=== PATIENT | male | born 1995 | race Caucasian/White ===

== ENCOUNTER 2018-07-07 11:48 | Emergency (ER) | payer OTHER ==
[~2018-07-07] VITALS: Ht 170.2 cm; Wt 100.0 kg
[2018-07-07] MEDS ORDERED: SOD CHLORIDE 0.9% 1,000 ML IV STA (12:16)
[2018-07-07] MEDS ORDERED: LORAZEPAM 0.5 MG TAB PO ONE (12:30)
[2018-07-07 12:37] VITALS: BP 122/77; PULSE 89; RESP 20; Ht 170.2 cm; Wt 100.0 kg
--- NOTE | 2018-07-07 14:08 | PSY ---
Date/Time of Note Date/Time of Note DATE: 07/07/18 TIME: 13:49 Psychiatric Subjective Eval Subjective Evaluation Patient location: emergency Chief Complaint: Pt. VALENTINA RA with c/o anxiety attacks, denies SI/HI Reason for consult: Risk assessment and treatment recommendations. Past psychiatric history He reports that he has been treated for psychiatric reasons most of his adult life. Hospitalization: Suicidal Attempt(s) Family History His brother has anxiety. Medical history He is in good health. Substance Abuse Substance use: No known substance abuse Substance abuse history: No Prior substance abuse treatmen: No Social History Marital status: single Level of education: High school graduate DPA/Conservatorship: No Occupation/Intermediate: Disabled Psychiatric Objective Eval Review of Systems: Review of Systems: Not Applicable Constitutional: Normal Eyes: Normal ENT: Normal Neck: Normal Respiratory: Normal Chest/Breast: Normal Cardiovascular: Normal GI: Normal Genitourinary: Normal Skin: Normal Lymphatic: Normal Musculoskeletal: Normal Neurological: Normal Physical Examination: Physical Examination: Not Applicable Sleep: Insomnia Appetite: Adequate Energy: Adequate Interest: Adequate Mental Status Examination: Appearance: Groomed Eye Contact: Good Psychomotor Activity: Normal Behavior: Cooperative Speech: Clear AFFECT: Appropriate, Anxious Mood: Appropriate/Full Though Process: Linear Thought Content: Normal Suicidal: No Homicidal: No On 72 hour hold: No Orientation: x4 Cognition: Alert Insight: Mild Judgement: Mild Attention Span: Intact Laboratory Results Laboratory Tests Test 07/07/18 12:38 White Blood Count 9.3 10^3/ul Red Blood Count 5.04 10^6/ul Hemoglobin 14.7 g/dl Hematocrit 43.3 % Mean Corpuscular Volume 85.9 fl Mean Corpuscular Hemoglobin 29.2 pg Mean Corpuscular Hemoglobin Concent 33.9 g/dl Red Cell Distribution Width 14.8 % Platelet Count 94 10^3/UL Mean Platelet Volume fl Immature Granulocytes % 0.400 % Neutrophils % 74.3 % Lymphocytes % 18.0 % Monocytes % 7.2 % Eosinophils % 0.0 % Basophils % 0.1 % Nucleated Red Blood Cells % 0.0 /100WBC Immature Granulocytes # 0.040 10^3/ul Neutrophils # 6.9 10^3/ul Lymphocytes # 1.7 10^3/ul Monocytes # 0.7 10^3/ul Eosinophils # 0.0 10^3/ul Basophils # 0.0 10^3/ul Nucleated Red Blood Cells # 0.0 10^3/ul Sodium Level 141 mmol/L Potassium Level 3.9 mmol/L Chloride Level 106 mmol/L Carbon Dioxide Level 24 mmol/L Anion Gap 11 Blood Urea Nitrogen 15 mg/dl Creatinine 0.84 mg/dl Est Glomerular Filtrat Rate mL/min > 60 mL/min Glucose Level 85 mg/dl Calcium Level 9.6 mg/dl Total Bilirubin 0.6 mg/dl Direct Bilirubin 0.00 mg/dl Indirect Bilirubin 0.6 mg/dl Aspartate Amino Transf (AST/SGOT) 26 IU/L Alanine Aminotransferase (ALT/SGPT) 26 IU/L Alkaline Phosphatase 126 IU/L Total Protein 8.6 g/dl Albumin 4.7 g/dl Globulin 3.90 g/dl Albumin/Globulin Ratio 1.20 Salicylates Level < 1.0 mg/dl Acetaminophen Level < 10.0 ug/ml Ethyl Alcohol Level mg/dl Assessment and Plan Assessment/Diagnosis Diagnosis Mental retardation Social phobia Schizophrenia Recommendation/Plan Medication Management The patient states that he has been prescribed Risperdal. He has an appointment this . Suggest social work instructor coordinate with the regional center for follow up. Give Risperdal 2mg and Ativan 0.5mg po now for acute symptomatic relief. Discharge Disposition: Community (home) Legal Status: Voluntary AGUILAR ARTHUR MD Jul 07, 2018 14:00
[2018-07-07] MEDS ORDERED: RISPERIDONE 2 MG TAB PO ONE (14:30)
[2018-07-07] MEDS ORDERED: RISP2TAB93 PO (14:34)
--- NOTE | 2018-07-07 16:50 | ERD ---
ER Documentation Chief Complaint Chief Complaint Pt. VALENTINA WALDRON with c/o anxiety attacks, denies SI/HI HPI 23-year-old man brought in by EMS for agitation and anxiety today, patient resides in a boarding care facility and states he felt anxious. He has a long history of psychiatric illness and states he uses risperidone daily but has had increasing auditory hallucinations but no plan to kill himself and no suicidal homicidal ideation. He denies recent fevers or chills, no chest pain or shortness of breath, no headache or blurry vision. Patient was transported here by EMS without complications. ROS All systems reviewed and are negative except as per history of present illness. Medications Home Meds Active Scripts Risperidone* (Risperdal*) 2 Mg Tablet, 2 MG PO DAILY, #20 TAB Prov:ANDRES BUSTOS MD 07/07/18 PMhx/Soc Mental retardation, schizophrenia, depression Medical and Surgical Hx: pt denies Surgical Hx History of Surgery: No Hx Neurological Disorder: No Hx Respiratory Disorders: No Hx Cardiac Disorders: No Hx Psychiatric Problems: Yes (Depression, Anxiety with attacks) Hx Miscellaneous Medical Probl: No Hx Alcohol Use: No Hx Substance Use: No Hx Tobacco Use: No Smoking Status: Never smoker Physical Exam Vitals Vital Signs Date Temp Pulse Resp B/P (MAP) Pulse Ox O2 O2 Flow FiO2 Time Delivery Rate 07/07/18 98.2 89 20 122/77 98 12:37 (92) Physical Exam Const: Anxious, afebrile HEENT: There is dehydrated with dry mucous membranes, pink conjunctive a Resp: Clear to auscultation bilaterally Cardio: Regular rate and rhythm, no murmurs Abd: Soft, non tender, non distended. Normal bowel sounds Skin: No petechiae or rashes Back: No midline or flank tenderness Ext: No cyanosis, or edema Neur: Awake and alert x3, no focal deficits or facial asymmetry Psych: Anxious Result Diagram: 07/07/18 1238 07/07/18 1238 Results 24 hrs Laboratory Tests Test 07/07/18 12:38 White Blood Count 9.3 10^3/ul Red Blood Count 5.04 10^6/ul Hemoglobin 14.7 g/dl Hematocrit 43.3 % Mean Corpuscular Volume 85.9 fl Mean Corpuscular Hemoglobin 29.2 pg Mean Corpuscular Hemoglobin Concent 33.9 g/dl Red Cell Distribution Width 14.8 % Platelet Count 94 10^3/UL Mean Platelet Volume fl Immature Granulocytes % 0.400 % Neutrophils % 74.3 % Lymphocytes % 18.0 % Monocytes % 7.2 % Eosinophils % 0.0 % Basophils % 0.1 % Nucleated Red Blood Cells % 0.0 /100WBC Immature Granulocytes # 0.040 10^3/ul Neutrophils # 6.9 10^3/ul Lymphocytes # 1.7 10^3/ul Monocytes # 0.7 10^3/ul Eosinophils # 0.0 10^3/ul Basophils # 0.0 10^3/ul Nucleated Red Blood Cells # 0.0 10^3/ul Sodium Level 141 mmol/L Potassium Level 3.9 mmol/L Chloride Level 106 mmol/L Carbon Dioxide Level 24 mmol/L Anion Gap 11 Blood Urea Nitrogen 15 mg/dl Creatinine 0.84 mg/dl Est Glomerular Filtrat Rate mL/min > 60 mL/min Glucose Level 85 mg/dl Calcium Level 9.6 mg/dl Total Bilirubin 0.6 mg/dl Direct Bilirubin 0.00 mg/dl Indirect Bilirubin 0.6 mg/dl Aspartate Amino Transf (AST/SGOT) 26 IU/L Alanine Aminotransferase (ALT/SGPT) 26 IU/L Alkaline Phosphatase 126 IU/L Total Protein 8.6 g/dl Albumin 4.7 g/dl Globulin 3.90 g/dl Albumin/Globulin Ratio 1.20 Salicylates Level < 1.0 mg/dl Acetaminophen Level < 10.0 ug/ml Ethyl Alcohol Level mg/dl Current Medications Medications Dose Sig/Pili Start Time Status Last (Trade) Ordered Route PRN Stop Time Admin Dose Reason Admin Sodium 1,000 ml @ Q1H STAT 07/07/18 DC 07/07/18 Chloride 1,000 mls/hr IV 12:16 12:34 07/07/18 13:15 Lorazepam 0.5 mg ONCE ONCE 07/07/18 DC 07/07/18 (Ativan) PO 12:30 12:34 07/07/18 12:31 Risperidone 2 mg ONCE ONCE 07/07/18 DC 07/07/18 (Risperdal) PO 14:30 14:45 07/07/18 14:31 Procedures/MDM IV line was established patient was placed on quality assurance monitor body rhythm strip revealed a sinus rhythm at about 80 bpm with upright P and T waves. Patient was afebrile I administered 1 L normal saline IV for dehydration and lorazepam 0.5 mg p.o. x1 for his symptoms. Telemetry psychiatry evaluated the patient as well and recommended outpatient management and recommended an increase to Risperdal until he follows up with his psychiatrist tomorrow, which is scheduled. There is no indication at this time for inpatient management or transfer to [facility] facility. I administered Risperdal 2 mg p.o. x1 for his symptoms. CBC and electrolytes are normal, liver function tests were normal, aspirin Tylenol levels negative. Differential diagnoses considered, included but not limited to acute coronary syndrome, pulmonary embolism, aortic dissection, abdominal aortic aneurysm, sepsis, stroke, meningitis, encephalitis, pneumonia, appendicitis, cholecystitis, bowel obstruction, pyelonephritis, nephrolithiasis, cystitis, as well as metabolic, hematologic, and electrolyte abnormalities. As well as abscess, cellulitis, fractures, and dislocations. Patient feels much better at this time, and vital signs are normal, symptoms have improved. I did give strict instructions to return to the ED if symptoms continue or worsen, patient will otherwise follow-up with primary care physician. Patient understood instructions and agreed to plan. Disclaimer: Inadvertent spelling and grammatical errors are likely due to EHR/dictation software use and do not reflect on the overall quality of patient care. Also, please note that the electronic time recorded on this note does not necessarily reflect the actual time of the patient encounter. Departure Diagnosis: Primary Impression: Anxiety attack Condition: Good Patient Instructions: Schizophrenia, General ANDRES BUSTOS MD Jul 07, 2018 16:50
== END 2018-07-07 15:36 | disposition home or self-care (01) ==
LOC: E/R 11:48
DX: F41.1 Generalized anxiety disorder (principal)
CPT/HCPCS: 36415; 80053; 80307; 85025; J7030; Z7502; Z7610